=== PATIENT | male | born 1960 | race Caucasian/White ===

== ENCOUNTER 2021-05-22 00:13 | Day surgery (SDC) | payer OTHER, SELFPAY ==
[2021-05-10 14:09] VITALS: BMI 25.9
[2021-05-22 11:40] VITALS: BP 138/92; PULSE 81; RESP 16; TEMP 36.7; O2SAT 99
--- NOTE | 2021-05-22 11:54 | WPDANESEPPF ---
Anes - Initial Pre Proc Eval Procedure: Operation Date: 05/22/21 13:00 Proposed Procedures p Colonoscopy - Micky Hogan MD Date/Time: 05/22/21 11:54 Surgeon: Micky Hogan MD Pre Op Diagnosis: hx of colon polyps, melena Patient Data Age: 60 Gender: M Height: 1.78 m Weight: 81.5 kg Last Vital Signs Temp 98.0 F 05/22/21 11:40 Pulse 81 05/22/21 11:40 Resp 16 05/22/21 11:40 BP 138/92 H 05/22/21 11:40 Pulse Ox 99 05/22/21 11:40 Allergies Allergy/AdvReac Type Severity Reaction Status Date / Time No Known Allergies Allergy Unverified 05/10/21 14:07 Home Medications Medication Instructions Recorded Confirmed Type ascorbic acid (vitamin C) 500 mg PO DAILY 05/10/21 05/10/21 History atorvastatin 40 mg PO DAILY 05/10/21 05/10/21 History hydrochlorothiazide 25 mg PO DAILY 05/10/21 05/10/21 History Patient hx anesthesia problems: none Family hx anesthesia problems: none PMFSH Past Medical History Medical History (Updated 05/22/21 @ 11:48 by Maldonado Hayes MD) Hyperlipidemia Hypertension Family History Family History (Updated 06/26/17 @ 08:42 by DOCTOR UNKNOWN) Father Family history of Parkinson's disease Mother Family history of coronary artery disease Other Diabetes mellitus Family history of gout Family history of mental disorder Hypertension Social History Social History Smoking packs per day: 1 Smoking cigarettes per day: 20.0 Years smoked: 20 Smoking pack-years: 20.00 Smoking status: Former smoker Tobacco type: cigarettes Smoking end date: 09/08/06 Alcohol intake: current Drinks per week: 1 Living arrangements: with family Spiritual care concerns: No Anes - Eval Final PreProcedure Day of Procedure 05/22/21 11:54 Patient weight: overweight Heart: regular rate and rhythm Lungs: clear to auscultation Airway: Mallampati scale class II Neurological: alert and oriented Last oral intake: >/= 8 hours ASA classification: II Emergent: no Anesthetic plan: proceed Anesthesia type and monitoring: general GIVS and standard monitoring Informed Consent: The patient's anesthetic plan and its attendant risks and benefits were discussed with the patient/family/POA. Questions were solicited and answers provided to the satisfaction of the patient/family/POA.
[2021-05-22] MEDS: LACTATED RINGERS 1,000 ML 150 ML IV CONT (11:57)
--- NOTE | 2021-05-22 11:59 | P.CONGI_ITS ---
Assessment and Plan Assessment and plan (1) History of colon polyps: Code(s): Z86.010 - Personal history of colonic polyps Status: Acute Assessment and Plan: Patient has a prior history of adenomatous colon polyps and for this reason follow-up exam is suggested at 5 year intervals. Further recommendations will be given after endoscopy. GI Consult Note Consult date/time: 05/22/21 11:59 HPI: Cristofer Oliver is a 60 year old male Presents for screening colonoscopy. Patient has a prior history of adenomatous colon polyp most recently 2015. Patient reports current weight appetite bowel movements are normal. He has on occasion noticed a small amount of bright red blood per rectum with wiping. Patient denies any significant pain or weight loss. Family history is noncontributory. Review of Systems Review of Systems: All systems reviewed & are unremarkable except as noted in HPI and below PMFSH Past Medical History Medical History (Updated 05/22/21 @ 12:00 by Micky Hogan MD) Hyperlipidemia Hypertension Family History Family History (Updated 06/26/17 @ 08:42 by DOCTOR UNKNOWN) Father Family history of Parkinson's disease Mother Family history of coronary artery disease Other Diabetes mellitus Family history of gout Family history of mental disorder Hypertension Social History Social History Smoking packs per day: 1 Smoking cigarettes per day: 20.0 Years smoked: 20 Smoking pack-years: 20.00 Smoking status: Former smoker Tobacco type: cigarettes Smoking end date: 09/08/06 Alcohol intake: current Drinks per week: 1 Living arrangements: with family Spiritual care concerns: No Meds Home Medications and Allergies Home Medications Medication Instructions Recorded Confirmed Type ascorbic acid (vitamin C) 500 mg PO DAILY 05/10/21 05/10/21 History atorvastatin 40 mg PO DAILY 05/10/21 05/10/21 History hydrochlorothiazide 25 mg PO DAILY 05/10/21 05/10/21 History Allergies Allergy/AdvReac Type Severity Reaction Status Date / Time No Known Allergies Allergy Unverified 05/10/21 14:07 Vital Signs Vital Signs - 24 hr 05/22/21 11:40 Temperature 98.0 F Pulse Rate 81 Respiratory Rate 16 Blood Pressure 138/92 H Pulse Oximetry 99 Exam Narrative: Physical exam reveals patient to be alert. Vital signs are stab le. HEENT exam is unremarkable. Patient is anicteric. Lungs are clear to auscultation and percussion. Heart is without murmur or extra sounds. Abdominal exam bowel sounds are present soft nontender with no organomegaly. Digital external rectal exam is normal.
[2021-05-22 12:25] VITALS: BP 97/66; PULSE 77; RESP 17; O2SAT 99
[2021-05-22 12:35] VITALS: BP 100/70; PULSE 74; RESP 15; O2SAT 98
[2021-05-22 12:45] VITALS: BP 118/85; PULSE 70; RESP 18; O2SAT 98
== END 2021-05-22 12:58 | disposition home or self-care (01) ==
PROVIDERS: PCP Internal Medicine; Visit Provider Internal Medicine Gastroenterology
PROC: 0DJD8ZZ Inspection of Lower Intestinal Tract, Via Natural or Artificial Opening Endoscopic (ICD-10-PCS; CPT 45378; principal; 2021-05-22 13:00)
DX: Z12.11 Encounter for screening for malignant neoplasm of colon (principal); D12.5 Benign neoplasm of sigmoid colon; K62.5 Hemorrhage of anus and rectum; K64.8 Other hemorrhoids; I10 Essential (primary) hypertension; E78.5 Hyperlipidemia, unspecified; F17.210 Nicotine dependence, cigarettes, uncomplicated
CPT/HCPCS: 45385; 88305; J2001; J2704; J7120

== ENCOUNTER → 2023-02-28 15:41 | Outpatient (CLI) | payer OTHER, SELFPAY ==
--- NOTE | ~2023-02-28 | XR_ITS ---
XR lumbar spine 2-3V 02/28/2023 15:53 Indication: Back pain. Procedure: 3 views lumbar spine Comparison: No prior studies for comparison. Findings: Vertebral body heights are maintained. No significant disc narrowing. No fracture, subluxat ion or dislocation. No evidence for spondylolysis. There is mild facet hypertrophy at L5-S1. Small ma rginal osteophytes at L2-3. There is atherosclerosis of the aorta. There are bilateral renal stones. Impression: 1: Mild lumbar spondylosis. 2: Bilateral nephrolithiasis. Reviewed, dictated and finalized at location [] Impression: 1: Mild lumbar spondylosis. 2: Bilateral nephrolithiasis.
== END ==
PROVIDERS: PCP Internal Medicine; Visit Provider Internal Medicine
DX: M47.896 Other spondylosis, lumbar region (principal); N20.0 Calculus of kidney
CPT/HCPCS: 72100

== ENCOUNTER 2024-03-23 09:17 | Outpatient (CLI) | payer BC, SELFPAY ==
--- NOTE | ~2024-03-23 | US_ITS ---
Limited Abdominal Sonogram: Real-time sonographic imaging of the right upper quadrant was performed. Clinical History: Abdominal pain Findings: The liver appears normal with no evidence of mass lesion or bile duct dilatation. Main por kvng vein demonstrates normal direction of flow. The gallbladder is well distended, and appears normal with no evidence of gallstone or wall thickening. The common bile duct measures 4 mm. The visualize d pancreas, aorta, and IVC are unremarkable. Right kidney measures 11 cm in length, without hydroneph rosis. Impression: No significant abnormality seen. Reviewed, dictated and finalized at location . Impression: No significant abnormality seen.
== END 2024-03-23 09:18 ==
LOC: MICIMG 09:19
PROVIDERS: PCP Internal Medicine; Visit Provider Internal Medicine
DX: R10.11 Right upper quadrant pain (principal)
CPT/HCPCS: 76705